=== PATIENT | male | born 2000 | race Caucasian/White ===

== ENCOUNTER 2024-01-28 20:53 | Emergency (ER) | payer BC | END 2024-01-28 22:10 | disposition home or self-care (01) | LOC: JD.ED 20:53 | DX: S61.214A Laceration without foreign body of right ring finger without damage to nail, initial encounter (principal); J45.909 Unspecified asthma, uncomplicated; W23.0XXA Caught, crushed, jammed, or pinched between moving objects, initial encounter; Y92.89 Other specified places as the place of occurrence of the external cause; Y99.0 Civilian activity done for income or pay | CPT/HCPCS: 73140-26-F8; 73140-F8; 99283 ==